=== PATIENT | male | born 1980 | race Caucasian/White ===

== ENCOUNTER 2016-06-20 15:43 | Inpatient (IN) | payer MEDICARE, OTHER ==
[~2016-06-20] VITALS: Ht 172.7 cm; Wt 74.8 kg
[~2016-06-20 15:43] MED LIST: ALBUTEROL2.5 MG/3 M INH; ALPRAZOLAM0.5 MG PO; CITALOPRAM HBR10 MG PO; HABITROL 21 MG P1 EA TD; IRON325 M1 PO; ISO GENTAM IV; JUVEN PACKET1 EACH PO; LEVAQUIN I750 MG/150 IV; LEVAQUIN750 MG PO; LORTAB 7.5-3251 EACH PO; NEURONTIN 300300 MG PO; NORVASC 5 MG TAB5 MG PO; OXYCODONE-ACET1 EAC1 PO; PHENERGAN 12.12.5 M1 PO; RANITIDINE HCL300 MG PO; THERAGRAN M TAB1 EA PO; ZOSYN 4.5 GRAM4.5 GM IV; ZOSYN IV; ZYRTEC10 M2 PO
[2016-06-20] MEDS ORDERED: ATIVAN 1MG TABLE1 MG PO (17:49)
[2016-06-20] MEDS ORDERED: MEGACE TAB 40 M40 MG PO (17:49)
[2016-06-20 17:50] LABS: HEMOGLOBIN 12.9 gm/dl (14.0-17.5); RED BLOOD COUNT 4.72 M/UL (4.20-5.50); WHITE BLOOD COUNT 6.5 K/UL (4.5-11.0)
[2016-06-20] MEDS ORDERED: MONTELUKAST SOD10 MG PO (17:50)
[2016-06-20 18:11] LABS: BUN/CREATININE RATIO 15 (0-10)
[2016-06-21 06:27] LABS: HEMOGLOBIN 12.1 gm/dl (14.0-17.5); RED BLOOD COUNT 4.53 M/UL (4.20-5.50); WHITE BLOOD COUNT 7.7 K/UL (4.5-11.0)
[2016-06-21 06:50] LABS: BUN/CREATININE RATIO 14 (0-10)
== END 2016-06-21 13:05 | disposition left against medical advice (07) | DRG 592 ==
LOC: CCU 17:21
PROVIDERS: ADMIT Emergency Medicine
DX: L89.154 Pressure ulcer of sacral region, stage 4 (principal); G82.50 Quadriplegia, unspecified; N39.0 Urinary tract infection, site not specified; R05 Cough; S14.105S Unspecified injury at C5 level of cervical spinal cord, sequela; S14.106S Unspecified injury at C6 level of cervical spinal cord, sequela; X58.XXXS Exposure to other specified factors, sequela; B96.5 Pseudomonas (aeruginosa) (mallei) (pseudomallei) as the cause of diseases classified elsewhere; D50.9 Iron deficiency anemia, unspecified; G89.29 Other chronic pain; M54.9 Dorsalgia, unspecified; R51 Headache; F17.200 Nicotine dependence, unspecified, uncomplicated; Z91.19 Patient's noncompliance with other medical treatment and regimen; Z86.14 Personal history of Methicillin resistant Staphylococcus aureus infection; Z87.01 Personal history of pneumonia (recurrent); Z93.0 Tracheostomy status; Z93.3 Colostomy status; Z93.1 Gastrostomy status; Z79.818 Long term (current) use of other agents affecting estrogen receptors and estrogen levels; Z79.891 Long term (current) use of opiate analgesic; Z79.899 Other long term (current) drug therapy; Z88.6 Allergy status to analgesic agent; Z98.890 Other specified postprocedural states
CPT/HCPCS: 36415; 71010; 80048; 80053; 80307; 81001; 83605; 83735; 84146; 85025; 85027; 87040; 87070; 87077; 87086; 87186; 87205; J1335; J1650; J1956; J2270; J3370; J7030; J7050; J7070